=== PATIENT | female | born 1950 | race Two or more races ===

== ENCOUNTER → 2017-04-04 | Outpatient (CLI) | payer OTHER ==
[~2017-04-04] VITALS: Ht 152.4 cm; Wt 47.2 kg
[~2017-04-04] MED LIST: BACTROBAN OINT22 GM TP; CLARITIN10 MG PO; FLONASE16 GM NS; SINGULAIR10 MG PO; SYNTHROID75 MCG PO; VISTARIL25 MG PO
== END | disposition home or self-care (01) ==
LOC: PPHC 08:28
DX: R05 Cough (principal); R09.81 Nasal congestion

== ENCOUNTER 2017-05-04 07:32 | Outpatient (CLI) | payer OTHER | END 2017-05-04 07:49 | disposition home or self-care (01) | LOC: LAB 07:32 | DX: E04.9 Nontoxic goiter, unspecified (principal); E04.1 Nontoxic single thyroid nodule ==

== ENCOUNTER → 2017-07-25 | Outpatient (CLI) | payer OTHER | END | disposition home or self-care (01) | LOC: EDBD 09:13 → EKG 09:13 | DX: R07.89 Other chest pain (principal) ==

== ENCOUNTER 2017-08-30 08:18 | Outpatient (CLI) | payer OTHER | END 2017-08-30 08:26 | disposition home or self-care (01) | LOC: LAB 08:18 | DX: D64.89 Other specified anemias (principal); E11.9 Type 2 diabetes mellitus without complications; E78.2 Mixed hyperlipidemia; I10 Essential (primary) hypertension; E03.8 Other specified hypothyroidism; Z11.3 Encounter for screening for infections with a predominantly sexual mode of transmission ==

== ENCOUNTER → 2017-12-25 06:49 | Outpatient (CLI) | payer OTHER | END | disposition home or self-care (01) | LOC: LAB 06:49 | DX: E03.8 Other specified hypothyroidism (principal); E04.8 Other specified nontoxic goiter; Z00.00 Encounter for general adult medical examination without abnormal findings; E78.49 Other hyperlipidemia ==

== ENCOUNTER 2017-12-26 13:44 | Outpatient (CLI) | payer OTHER | END 2017-12-26 13:50 | disposition home or self-care (01) | LOC: SONOGRAMA 13:44 | DX: E04.8 Other specified nontoxic goiter (principal); E03.8 Other specified hypothyroidism ==

== ENCOUNTER 2017-12-29 07:09 | Outpatient (CLI) | payer OTHER | END 2017-12-29 07:12 | disposition home or self-care (01) | LOC: LAB 07:09 | DX: N39.0 Urinary tract infection, site not specified (principal) ==

== ENCOUNTER 2018-05-02 07:32 | Outpatient (CLI) | payer OTHER | END 2018-05-02 07:38 | disposition home or self-care (01) | LOC: LAB 07:32 | DX: E78.2 Mixed hyperlipidemia (principal); E04.8 Other specified nontoxic goiter; E03.8 Other specified hypothyroidism ==

== ENCOUNTER → 2018-08-01 07:49 | Outpatient (CLI) | payer OTHER | END | disposition home or self-care (01) | LOC: LAB 07:49 | DX: E03.8 Other specified hypothyroidism (principal); E04.1 Nontoxic single thyroid nodule ==

== ENCOUNTER 2018-08-30 10:21 | Outpatient (CLI) | payer OTHER | END 2018-08-30 14:40 | disposition home or self-care (01) | LOC: MAMO-SONO 10:21 | DX: Z12.31 Encounter for screening mammogram for malignant neoplasm of breast (principal); N64.4 Mastodynia ==

== ENCOUNTER 2018-10-30 08:26 | Outpatient (CLI) | payer OTHER | END 2018-10-30 08:31 | disposition home or self-care (01) | LOC: LAB 08:26 | DX: D64.89 Other specified anemias (principal); E11.9 Type 2 diabetes mellitus without complications; E78.2 Mixed hyperlipidemia; I10 Essential (primary) hypertension; E03.8 Other specified hypothyroidism ==

== ENCOUNTER 2019-04-25 07:03 | Outpatient (CLI) | payer OTHER | END 2019-04-25 10:02 | disposition home or self-care (01) | LOC: LAB 07:03 | DX: E03.8 Other specified hypothyroidism (principal) ==

== ENCOUNTER 2019-10-17 06:39 | Outpatient (CLI) | payer OTHER | END 2019-10-17 06:44 | disposition home or self-care (01) | LOC: LAB 06:39 | PROVIDERS: ATTEND Internal Medicine Sports Medicine | DX: D64.89 Other specified anemias (principal); E11.9 Type 2 diabetes mellitus without complications; E78.2 Mixed hyperlipidemia; I10 Essential (primary) hypertension; E03.8 Other specified hypothyroidism ==

== ENCOUNTER 2019-11-03 08:26 | Emergency (ER) | payer OTHER ==
[~2019-11-03] VITALS: Ht 149.9 cm; Wt 47.6 kg
== END 2019-11-03 10:57 | disposition home or self-care (01) ==
LOC: ER 08:26
DX: J06.9 Acute upper respiratory infection, unspecified (principal); Z03.818 Encounter for observation for suspected exposure to other biological agents ruled out

== ENCOUNTER 2019-11-07 08:00 | Outpatient (CLI) | payer OTHER | END 2019-11-07 15:00 | disposition home or self-care (01) | LOC: PPH VACUNA 08:00 | DX: Z23 Encounter for immunization (principal) ==

== ENCOUNTER 2020-02-06 13:39 | Outpatient (CLI) | payer OTHER | END 2020-02-06 18:00 | disposition home or self-care (01) | LOC: PPH VACUNA 13:39 | DX: Z23 Encounter for immunization (principal) ==

== ENCOUNTER 2020-02-18 06:34 | Outpatient (CLI) | payer OTHER | END 2020-02-18 18:00 | disposition home or self-care (01) | LOC: LAB 06:34 | PROVIDERS: ATTEND Internal Medicine Cardiovascular Disease | DX: I10 Essential (primary) hypertension (principal); E11.9 Type 2 diabetes mellitus without complications; E03.8 Other specified hypothyroidism; E78.2 Mixed hyperlipidemia; E55.9 Vitamin D deficiency, unspecified; Z12.11 Encounter for screening for malignant neoplasm of colon ==

== ENCOUNTER 2020-02-22 11:39 | Emergency (ER) | payer OTHER ==
[~2020-02-22] VITALS: Ht 154.9 cm; Wt 46.7 kg
[2020-02-22] MEDS ORDERED: TORADOL60 MG IM (15:21)
[2020-02-22] MEDS ORDERED: ORPHENADRINE C100 MG PO (15:21)
[2020-02-22] MEDS ORDERED: DICLOFENAC SOD100 MG PO (15:21)
== END 2020-02-22 17:31 | disposition home or self-care (01) ==
LOC: ER 11:39
DX: M62.830 Muscle spasm of back (principal); M54.42 Lumbago with sciatica, left side; M54.41 Lumbago with sciatica, right side; R10.2 Pelvic and perineal pain

== ENCOUNTER 2020-03-05 12:57 | Outpatient (CLI) | payer OTHER ==
[~2020-03-05 12:57] MED LIST changes: +DICLOFENAC SOD100 MG PO; +ORPHENADRINE C100 MG PO; +TORADOL60 MG IM
== END 2020-03-05 13:11 | disposition home or self-care (01) ==
LOC: SONOGRAMA 12:57 → NUCLEAR 03-12 11:00
PROVIDERS: ATTEND Internal Medicine Sports Medicine
DX: E03.8 Other specified hypothyroidism (principal); E04.1 Nontoxic single thyroid nodule

== ENCOUNTER 2020-03-12 11:22 | Outpatient (CLI) | payer OTHER | END 2020-03-12 11:27 | disposition home or self-care (01) | LOC: NUCLEAR 11:22 | PROVIDERS: ATTEND Internal Medicine Cardiovascular Disease | DX: M81.0 Age-related osteoporosis without current pathological fracture (principal); E55.9 Vitamin D deficiency, unspecified ==

== ENCOUNTER 2020-03-16 06:57 | Outpatient (CLI) | payer OTHER | END 2020-03-16 07:01 | disposition home or self-care (01) | LOC: LAB 06:57 | PROVIDERS: ATTEND Internal Medicine Sports Medicine | DX: E03.8 Other specified hypothyroidism (principal); E04.8 Other specified nontoxic goiter ==

== ENCOUNTER 2020-06-23 06:31 | Outpatient (CLI) | payer OTHER | END 2020-06-23 06:35 | disposition home or self-care (01) | LOC: LAB 06:31 | PROVIDERS: ATTEND Internal Medicine Sports Medicine | DX: E03.8 Other specified hypothyroidism (principal); E04.1 Nontoxic single thyroid nodule; E04.8 Other specified nontoxic goiter ==

== ENCOUNTER → 2020-11-10 | Outpatient (CLI) | payer OTHER | END | disposition home or self-care (01) | LOC: LAB 06:53 | PROVIDERS: ATTEND Internal Medicine Sports Medicine | DX: E03.8 Other specified hypothyroidism (principal); E04.8 Other specified nontoxic goiter; E04.1 Nontoxic single thyroid nodule ==

== ENCOUNTER → 2020-11-17 | Outpatient (CLI) | payer OTHER | END | disposition home or self-care (01) | LOC: PPH VACUNA 08:20 | PROVIDERS: ATTEND Emergency Medicine Pediatric Emergency Medicine | DX: Z23 Encounter for immunization (principal) ==

== ENCOUNTER 2020-11-26 10:55 | Outpatient (CLI) | payer OTHER | END 2020-11-26 10:57 | disposition home or self-care (01) | LOC: PPH VACUNA 10:55 | PROVIDERS: ATTEND Emergency Medicine Pediatric Emergency Medicine | DX: Z23 Encounter for immunization (principal) ==

== ENCOUNTER 2020-12-02 10:14 | Outpatient (CLI) | payer OTHER | END 2020-12-02 10:21 | disposition home or self-care (01) | LOC: NUCLEAR 10:14 | PROVIDERS: ATTEND Internal Medicine Sports Medicine | DX: I73.9 Peripheral vascular disease, unspecified (principal) ==

== ENCOUNTER 2021-02-04 06:37 | Outpatient (CLI) | payer OTHER | END 2021-02-04 06:38 | disposition home or self-care (01) | LOC: LAB 06:37 | PROVIDERS: ATTEND Internal Medicine Sports Medicine | DX: D64.89 Other specified anemias (principal); I10 Essential (primary) hypertension; E03.8 Other specified hypothyroidism; E78.2 Mixed hyperlipidemia; E11.9 Type 2 diabetes mellitus without complications ==

== ENCOUNTER 2021-07-29 09:16 | Outpatient (CLI) | payer OTHER | END 2021-07-29 09:19 | disposition home or self-care (01) | LOC: NUCLEAR 09:16 | PROVIDERS: ATTEND Internal Medicine Sports Medicine | DX: R00.2 Palpitations (principal) ==

== ENCOUNTER 2021-10-20 08:00 | Outpatient (CLI) | payer OTHER | END 2021-10-20 08:05 | disposition home or self-care (01) | LOC: PPH VACUNA 08:00 | PROVIDERS: ATTEND Emergency Medicine Pediatric Emergency Medicine | DX: Z23 Encounter for immunization (principal) | CPT/HCPCS: 90686; G0008 ==

== ENCOUNTER 2021-10-26 06:52 | Outpatient (CLI) | payer OTHER | END 2021-10-26 07:00 | disposition home or self-care (01) | LOC: LAB 06:52 | PROVIDERS: ATTEND Internal Medicine Sports Medicine | DX: E03.8 Other specified hypothyroidism (principal); E04.9 Nontoxic goiter, unspecified; E04.1 Nontoxic single thyroid nodule ==

== ENCOUNTER 2022-01-21 10:43 | Outpatient (CLI) | payer OTHER | END 2022-01-21 10:53 | disposition home or self-care (01) | LOC: PPH VACUNA 10:43 | PROVIDERS: ATTEND Emergency Medicine Pediatric Emergency Medicine | DX: Z23 Encounter for immunization (principal) ==

== ENCOUNTER 2022-01-23 10:09 | Emergency (ER) | payer OTHER ==
[~2022-01-23] VITALS: Ht 152.4 cm; Wt 44.9 kg
== END 2022-01-23 14:48 | disposition home or self-care (01) ==
LOC: ER 10:09
DX: S00.93XA Contusion of unspecified part of head, initial encounter (principal); S33.9XXA Sprain of unspecified parts of lumbar spine and pelvis, initial encounter; S13.9XXA Sprain of joints and ligaments of unspecified parts of neck, initial encounter; S29.019A Strain of muscle and tendon of unspecified wall of thorax, initial encounter; W18.39XA Other fall on same level, initial encounter; Y93.9 Activity, unspecified; Y92.018 Other place in single-family (private) house as the place of occurrence of the external cause; Y99.9 Unspecified external cause status; E03.9 Hypothyroidism, unspecified

== ENCOUNTER 2022-03-07 07:11 | Outpatient (CLI) | payer OTHER | END 2022-03-07 07:16 | disposition home or self-care (01) | LOC: LAB 07:11 | PROVIDERS: ATTEND Internal Medicine Cardiovascular Disease | DX: E03.9 Hypothyroidism, unspecified (principal) ==

== ENCOUNTER 2022-03-15 10:18 | Outpatient (CLI) | payer OTHER | END 2022-03-15 10:20 | disposition home or self-care (01) | LOC: EKG 10:18 | PROVIDERS: ATTEND Internal Medicine Sports Medicine | DX: R07.9 Chest pain, unspecified (principal) ==

== ENCOUNTER 2022-05-06 07:04 | Outpatient (CLI) | payer OTHER | END 2022-05-06 07:05 | disposition home or self-care (01) | LOC: LAB 07:04 | PROVIDERS: ATTEND Internal Medicine Cardiovascular Disease | DX: I10 Essential (primary) hypertension (principal); E11.9 Type 2 diabetes mellitus without complications; E03.9 Hypothyroidism, unspecified; E78.2 Mixed hyperlipidemia; Z12.11 Encounter for screening for malignant neoplasm of colon ==

== ENCOUNTER 2022-09-07 07:01 | Outpatient (CLI) | payer OTHER | END 2022-09-07 07:03 | disposition home or self-care (01) | LOC: LAB 07:01 | PROVIDERS: ATTEND Internal Medicine Cardiovascular Disease | DX: E78.2 Mixed hyperlipidemia (principal); E03.9 Hypothyroidism, unspecified; I10 Essential (primary) hypertension ==

== ENCOUNTER 2022-11-11 13:43 | Outpatient (CLI) | payer OTHER | END 2022-11-11 13:53 | disposition home or self-care (01) | LOC: PPH VACUNA 13:43 | PROVIDERS: ATTEND Emergency Medicine Pediatric Emergency Medicine | DX: Z23 Encounter for immunization (principal) | CPT/HCPCS: 90686; G0008 ==

== ENCOUNTER 2023-09-01 08:03 | Outpatient (CLI) | payer OTHER ==
[2023-09-01 09:40] LABS: ob NEGATIVE (NEGATIVE)
== END 2023-09-01 14:03 | disposition home or self-care (01) ==
LOC: LAB 08:03
PROVIDERS: ATTEND Internal Medicine Cardiovascular Disease
DX: D64.0 Hereditary sideroblastic anemia (principal); Z12.11 Encounter for screening for malignant neoplasm of colon

== ENCOUNTER 2023-09-18 08:54 | Outpatient (CLI) | payer OTHER | END 2023-09-18 08:56 | disposition home or self-care (01) | LOC: NUCLEAR 08:54 | PROVIDERS: ATTEND Internal Medicine Cardiovascular Disease | DX: R07.9 Chest pain, unspecified (principal) ==

== ENCOUNTER 2023-11-06 06:44 | Emergency (ER) | payer OTHER ==
[~2023-11-06] VITALS: Ht 154.9 cm; Wt 45.8 kg
[2023-11-06] MEDS ORDERED: PEPCID AC20 MG (07:07)
[2023-11-06] MEDS ORDERED: CEFTRIAXONE SODIUM 1,000 MG VIAL IM STA (08:41)
[2023-11-06] MEDS ORDERED: KETOROLAC TROMETHAMINE 30 MG VIAL IM STA (08:41)
[2023-11-06] MEDS ORDERED: KETOROLAC TROMETHAMINE 30 MG VIAL ONE (08:47)
[2023-11-06] MEDS ORDERED: CEFTRIAXONE SODIUM 1,000 MG VIAL ONE (08:47)
[2023-11-06] MEDS ORDERED: LIDOCAINE HCL 1% 10ML VIAL ONE (08:47)
== END 2023-11-06 08:52 | disposition home or self-care (01) ==
LOC: ER 06:44
DX: K05.10 Chronic gingivitis, plaque induced (principal)
CPT/HCPCS: 96372; 99282; J0696; J1885

== ENCOUNTER → 2023-11-27 | Outpatient (CLI) | payer OTHER ==
[~2023-11-27] MED LIST changes: +PEPCID AC20 MG; +SYNTHROID75 MCG
== END | disposition home or self-care (01) ==
LOC: MAMO-SONO 08:01
PROVIDERS: ATTEND Internal Medicine Cardiovascular Disease
DX: N60.11 Diffuse cystic mastopathy of right breast (principal); N60.12 Diffuse cystic mastopathy of left breast; Z12.31 Encounter for screening mammogram for malignant neoplasm of breast

== ENCOUNTER 2024-01-03 11:00 | Outpatient (CLI) | payer OTHER | END 2024-01-03 11:15 | disposition home or self-care (01) | LOC: PPH VACUNA 11:00 | PROVIDERS: ATTEND Emergency Medicine Pediatric Emergency Medicine | DX: Z23 Encounter for immunization (principal) ==

== ENCOUNTER 2024-03-29 07:00 | Outpatient (CLI) | payer OTHER ==
[2024-03-29 08:51] LABS: T4 FREE 1.38 NG/ML (0.76-1.46)
[2024-03-29 08:54] LABS: TSH 0.2 uIU/mL (0.358-3.74)
== END 2024-03-29 07:03 | disposition home or self-care (01) ==
LOC: LAB 07:00
PROVIDERS: ATTEND Internal Medicine Endocrinology, Diabetes & Metabolism
DX: E03.8 Other specified hypothyroidism (principal)

== ENCOUNTER 2024-04-11 12:42 | Outpatient (CLI) | payer OTHER | END 2024-04-11 12:43 | disposition home or self-care (01) | LOC: EKG 12:42 | PROVIDERS: ATTEND Internal Medicine Cardiovascular Disease | DX: I10 Essential (primary) hypertension (principal) ==

== ENCOUNTER 2024-06-17 08:49 | Outpatient (CLI) | payer OTHER | END 2024-06-17 08:51 | disposition home or self-care (01) | LOC: RAD 08:49 | PROVIDERS: ATTEND Internal Medicine Cardiovascular Disease | DX: M12.9 Arthropathy, unspecified (principal); M46.47 Discitis, unspecified, lumbosacral region ==

== ENCOUNTER 2024-09-20 06:15 | Outpatient (CLI) | payer OTHER ==
[2024-09-20 08:46] LABS: ALT/SGPT 26.0 U/L (12-78); AST/SGOT 14.0 U/L (15-37); BILIRUBIN TOTAL 0.57 mg/dL (0.3-1.2); BUN CREA RATIO 19.0 (7.0-25.0); CHOL HDL RATIO 2.9 (0-5.0); CREATININE SERUM 0.52 mg/dL (0.55-1.02); GFR 115.59; GLOBULINA 3.1 G/DL (2.4-3.5); GLUCOSE FASTING 81.0 mg/dL (65-100); HDL 70.0 mg/dl (40-60); LDL 120.0 mg/dl (0-130); OSMOLALITY SERUM 277.0 MOSM/KG (275-295); T4 FREE 1.45 NG/ML (0.76-1.46); VLDL 11.0 (0-39)
[2024-09-20 08:50] LABS: TSH 0.168 uIU/mL (0.358-3.74)
== END 2024-09-20 06:16 | disposition home or self-care (01) ==
LOC: LAB 06:15
PROVIDERS: ATTEND Internal Medicine Endocrinology, Diabetes & Metabolism
DX: E03.8 Other specified hypothyroidism (principal); E78.00 Pure hypercholesterolemia, unspecified